=== PATIENT | male | born 1980 | race Hispanic/Latino ===

== ENCOUNTER → 2023-01-27 | Day surgery (SDC) | payer BC, OTHER ==
[2023-01-23 09:33] LABS: BASOPHILS # (AUTO) 0.1 (0.0-0.1); BASOPHILS % 1.6 % (0.0-1.0); EOSINOPHILS # (AUTO) 0.1 (0.0-0.4); EOSINOPHILS % 1.1 % (0.0-6.0); HEMATOCRIT 48.1 % (38.2-49.6); HEMOGLOBIN 15.9 g/dL (14.0-18.0); LYMPHOCYTES # (AUTO) 1.7 (1.0-3.2); LYMPHOCYTES % 21.9 % (18.0-39.1); MEAN CORPUSCULAR HGB CONC 33.1 g/dL (31-35); MEAN CORPUSCULAR VOLUME 87.6 fL (81-99); MONOCYTES # (AUTO) 0.7 (0.2-0.8); MONOCYTES % 8.6 % (4.4-11.3); NEUTROPHILS % 66.3 % (38.7-80.0); PLATELET COUNT 167 x10e3/uL (140-360); RED BLOOD COUNT 5.49 x10e6/uL (4.3-5.7); RED CELL DISTRIBUTION WIDTH 13.8 % (11.7-14.4)
[2023-01-23 09:53] LABS: CALCIUM 9.5 mg/dL (8.4-10.2); CREATININE, SERUM 0.93 mg/dL (0.72-1.25)
[~2023-01-27] MED LIST: AMLODIPINE BESY10 MG PO; BUPIVACAINE 0.5%/EPI 30 ML SDV INJ ONE; FENTANYL CITRATE/PF 100MCG/2 ML INJ ONE; GLYCOPYRROLATE INJ 0.2 MG/ML VIAL ONE; HYDROCODONE/APAP 7.5MG-325MG 1 EA TAB ONE; HYDROCODONE/APAP 7.5MG-325MG 1 EA TAB PO ONE; KETOROLAC TROMETHAMINE 30 MG/ML VIAL ONE; LACTATED RINGER'S 1,000 ML ONE; LIDOCAINE HCL 2% LOCAL INJ 5 ML SDV VIAL INJ ONE; METOCLOPRAMIDE HCL 10 MG/2ML VIAL ONE; METOPROLOL SUCC25 MG PO; NEOSTIGMINE 1 MG/ML 10ML VIAL ONE; ONDANSETRON HCL INJ 2MG/ML 2ML 2 MG/ML VIAL ONE; POVIDONE IODINE 0.05% 0.05 % ML PO ONE; PROPOFOL IV EMULSION 10 MG/ML 20 ML VIAL ONE; ROCURONIUM BROMIDE 10 MG/ML 5ML VIAL IV ONE; SEVOFLURANE INHAL SOLN 250 ML PEN BTL ONE; SUCCINYLCHOLINE CHLORIDE 20 MG/ML 10ML VIAL ONE; SUGAMMADEX SODIUM 200 MG/2 ML VIAL IV ONE; TRIAMTERENE-HCTZ1 EA PO
[2023-01-27 14:35] VITALS: BP 122/77; PULSE 72; RESP 16; O2SAT 92
== END | disposition home or self-care (01) ==
LOC: OR 09:23
PROVIDERS: ATTEND Surgery
DX: K42.0 Umbilical hernia with obstruction, without gangrene (principal); I10 Essential (primary) hypertension; E66.9 Obesity, unspecified; F17.200 Nicotine dependence, unspecified, uncomplicated; Z01.810 Encounter for preprocedural cardiovascular examination; Z01.812 Encounter for preprocedural laboratory examination; Z79.899 Other long term (current) drug therapy
CPT/HCPCS: 36415; 49594; 80048; 85025; 88302; 93005; C1781; J0330; J1885; J2001; J2405; J2704; J2710; J2765; J3010; J7121; 88304